=== PATIENT | female | born 1940 | race Caucasian/White ===

== ENCOUNTER → 2017-04-07 | Outpatient (CLI) | payer MEDICARE ==
[~2017-04-07] MED LIST: ALPRAZOLAM0.5 MG PO; BISOPROLOL-HCT1 EAC2 PO; CARTIA XT180 MG PO; LOSARTAN POTASS50 MG PO; PRAVASTATIN SOD40 MG PO; VIT D2 PO
[2017-04-07 10:04] LABS: HEMOGLOBIN 12.4 gm/dl (12.3-15.3); RED BLOOD COUNT 4.37 M/UL (4.00-5.10); WHITE BLOOD COUNT 6.2 K/UL (4.5-11.0)
[2017-04-07 10:15] LABS: BUN/CREATININE RATIO 24 (0-10)
== END ==
LOC: OPSV2 09:00
PROVIDERS: Orthopaedic Surgery
DX: Z01.810 Encounter for preprocedural cardiovascular examination (principal); Z01.812 Encounter for preprocedural laboratory examination; Z01.818 Encounter for other preprocedural examination; M16.11 Unilateral primary osteoarthritis, right hip
CPT/HCPCS: 36415; 71020; 80048; 81001; 85025; 87081; 93005